=== PATIENT | male | born 1960 | race Caucasian/White ===

== ENCOUNTER 2016-11-15 06:16 | Emergency (ER) | payer BC ==
[2016-11-15 06:50] VITALS: TEMP 98.3; BMI 27.9
[2016-11-15 07:09] VITALS: BP 165/81; PULSE 67
[2016-11-15] MEDS ORDERED: KETOROLAC TROMETH 30 MG/ML VIAL IM ONE (07:12)
[2016-11-15] MEDS ORDERED: DEXAMETHASONE PF 10 MG/1 ML VIAL IM ONE (07:12)
--- NOTE | 2016-11-15 07:14 | EDPRACDOC ---
- General Information Chief Complaint: Back Pain Stated Complaint: BACK / FLANK PAIN Time Seen by Provider: 11/15/16 07:06 Information Source: Patient Mode Of Arrival: Car Home Medications: Home Medications Cyclobenzaprine HCl [Flexeril] 10 mg PO TID PRN #20 tablet 11/16/15 Fluoxetine HCl [Prozac] 20 mg PO DAILY 11/16/15 Levothyroxine [Synthroid, Levoxyl] 200 mcg PO DAILY 11/16/15 Oxycodone Immediate Release [Oxy-Ir] 5 mg PO Q6H PRN #20 tab 11/16/15 Prednisone [Deltasone, Orasone] 40 mg PO DAILY 5 Days 11/16/15 Diazepam [Valium] 5 mg PO BID #10 tablet 11/15/16 Ketorolac Tromethamine [Toradol] 10 mg PO Q6H PRN #20 tab 11/15/16 Oxycodone HCl [Roxicodone] 5 mg PO Q6H #15 tablet 11/15/16 Prednisone [Deltasone, Orasone] 1 tabs PO BID #18 tab 11/15/16 Allergies/Adverse Reactions: Allergies Allergy/AdvReac Type Severity Reaction Status Date / Time No Known Allergies Allergy Verified 11/16/15 11:47 - History of Present Illness Onset: Tuesday HPI: PT HELPED A FRIEND MOVE FURNITURE ON 11/13. HE THINKS HE OVER DID IT. HE NOW HAS PAIN IN HIS LOW BACK WITH PAIN RADIATING TO HIS LEFT LEG. HE ALSO FEELS NUMB IN BOTH FEET. HE HAS HAD BACK PROBLEMS IN THE PAST WHICH HAS REQUIRED 2 SURGERIES. PT DENIES BOWEL OR BLADDER PROBLEMS. Pain Location: Reports: Lumbar Pain Radiates To: Reports: Thigh Pain Caused By: Reports: Lifting Relevant History: Reports: None Pain Severity: Reports: Moderate Pain Quality: Reports: Sharp Worsened By: Reports: Movement Associated Signs and Symptoms: Reports: None ED Past Medical History - Patient Medical History Cardiac History: Reports: Hypertension Respiratory History: Denies: COPD GI/ History: Denies: Gastroesophageal Reflux Psychological History: Denies: Depression Systemic History: Reports: Hypothyroidism. Denies: Cancer, Diabetes Surgical History: Reports: Other (Previous back surgery, lumbar laminectomy) - Social Medical History Smoking Status: Never smoker ETOH: None Substance Abuse: None Lives In: Home EDM Review of Systems - Review of Systems ROS Negative Except as Marked: Yes All systems reviewed and were negative except as marked Neurological: Numbness Musculoskeletal: Back - Physical Exam Constitutional: Alert (Awake), No apparent distress Oriented to: Time, Person, Place Last recorded Vital Signs: Last Vital Signs Temp 98.3 F 11/15/16 06:18 Pulse 67 11/15/16 07:09 Resp 18 11/15/16 07:09 BP 165/81 11/15/16 07:09 Pulse Ox 97 11/15/16 07:09 Oxygen Pulse Oxygen Saturation 97 O2 Device Room Air Oxygen Flow Rate Fraction of Inspired Oxygen ( FIO2) - HEENT Head: Normal ( normocephalic) Eye Exam: Normal (PERRL, EOMI, Sclera white) Oropharynx: Normal (Pharynx:Moist without exudate,Gums-no swelling) ENT EAC: Normal TMJ: Normal Nose: No Symptoms Reported (septum midline) Neck: Normal (FROM, trachea at midline) - Respiratory/Cardiovascular Respiratory: Normal - CTA (BBS clear to auscultation without adventitious sounds ) Cardiovascular: Normal (RRR without murmur, gallop or rub) - GI Auscultation: Normal (NABS) Palpation: Normal (Soft,No rebound or guarding, non distended) Tenderness: Non tender Reed's Sign: Negative - Musculoskeletal Back: Lumbar TTP Extremities: Normal - Integumentary Skin: Normal, Warm, Dry Lymphatics: Normal (no adenopathy) - Neurologic Memory Impaired: Normal Motor Function: Normal (Normal tone, Pulses 2+ No cyanosis or edema, FROM) Cranial Nerve: Normal (CN II-X11 intact sensation, strength 5/5) Cerebellar: Normal Mood Description: Normal Perception: Normal ED Back Exam - Neurologic Motor Deficit: None - Musculoskeletal Straight Leg Raise: Positive Decision Time to Discharge: 07:15 - Departure Yes I personally saw and evaluated the patient. Disposition: Home Condition: Fair Final Diagnosis: Acute sciatica Instructions: Sciatica (ED) Education/Counseling Given To: Patient Education/Counseling Given Regarding: Diagnosis, Treatment, Follow Up Referrals: Santiago Brooke MD [Primary Care Provider] - One Week Sudheer Joyce MD [Staff Physician] - One Week Prescriptions: New Diazepam [Valium] 5 mg PO BID #10 tablet Ketorolac Tromethamine [Toradol] 10 mg PO Q6H PRN #20 tab PRN Reason: Pain Oxycodone HCl [Roxicodone] 5 mg PO Q6H #15 tablet Prednisone [Deltasone, Orasone] 1 tabs PO BID #18 tab No Action Levothyroxine [Synthroid, Levoxyl] 200 mcg PO DAILY Fluoxetine HCl [Prozac] 20 mg PO DAILY Prednisone [Deltasone, Orasone] 40 mg PO DAILY 5 Days Cyclobenzaprine HCl [Flexeril] 10 mg PO TID PRN #20 tablet PRN Reason: Muscle Spasms Oxycodone Immediate Release [Oxy-Ir] 5 mg PO Q6H PRN #20 tab PRN Reason: Pain Forms: Excuse Note
== END 2016-11-15 07:49 | disposition home or self-care (01) ==
LOC: ED 06:16
DX: M54.30 Sciatica, unspecified side (principal)
CPT/HCPCS: 96372; 99283; J1100; J1885